=== PATIENT | male | born 1955 | race Caucasian/White ===

== ENCOUNTER → 2016-12-13 | Outpatient (CLI) | payer OTHER ==
[~2016-12-13] MED LIST: ATORVASTATIN CA80 MG PO; CARV12.5 PO; CYCL10TA2 PO; GABA-586 PO; GLIM4TAB2 PO; HYDR-2758 PO; LOSA1TAB18 PO; METF500T4 PO; NITR0.4T SL; OMEP40CA5 PO; SUCR1TAB PO; TRAM50TA PO; VENTOLIN HFA18 GM INH
--- NOTE | 2016-12-13 13:48 | KCIC ---
MRI Lumbar Spine without contrast History: Lumbar stenosis, chronic back pain, worsening pain, previous surgery Technique: Multiplanar, multi sequential noncontrast MR imaging was performed of the lumbar spine. Contrast: None Comparison: June 27, 2014 Findings: Lumbar vertebral body stature is maintained. There is again osseous interbody fusion L5-S1. There is again advanced degenerative disease at L4-5, to lesser degree L3-4. Alignment is unchanged. Conus terminates at the mid aspect L2. There is minimal inferior lumbar dextroscoliosis. There is hemangioma of T11. L1-L2: Spinal canal and neural foramina are adequate. L2-L3: Neural foramina and spinal canal are adequate. There is mild facet hypertrophic change. There is negligible disc osteophyte complex. L3-L4: There is again mild facet degenerative change and buckling of the ligamentum flavum, also mild prominence of posterior epidural fat. There is again broad posterior disc osteophyte complex and bulge. Combination of findings results in moderate to severe spinal stenosis with lateral recess stenosis bilaterally, limited preserved subarachnoid space. There is again moderate left and [id number] right neural foramina compromise. L4-L5: There again has been posterior decompression. There is bilateral facet hypertrophic change. There is again broad posterior disc osteophyte complex. There is again moderate left and mild right lateral recess stenosis. There is fairly severe neural foramina compromise bilaterally with contact exiting L4 nerve roots. L5-S1: There are posterior osteophytes. Spinal canal is overall adequate. There has been posterior decompression. There is mild left and probable moderate right neural foramina compromise also with osteophytes near the extraforaminal right L5 nerve root. Impression: 1. There is moderate to severe spinal stenosis L3-4, limited subarachnoid space and lateral recess stenosis bilaterally. 2. There is again advanced degenerative disc disease at L4-5 and to lesser degree L3-4. There is again osseous interbody fusion L5-S1. There is multilevel spondylosis. 3. There is fairly severe bilateral L4-5 neural foramina compromise with contact exiting L4 nerve roots. There is a lesser degree of narrowing on the right at L5-S1 although osteophytes near the extraforaminal right L5 nerve root at L5-S1. There is also mild/moderate neural foramina compromise bilaterally at L3-4. Electronically signed by: Matheus Murphy MD (12/13/2016 1:45 PM) [facility]
== END | disposition home or self-care (01) ==
LOC: KCIC MRI 12:56
PROVIDERS: ATTEND Family Medicine
DX: M48.06 Spinal stenosis, lumbar region (principal); M51.36 Other intervertebral disc degeneration, lumbar region; M25.78 Osteophyte, vertebrae; G89.29 Other chronic pain
CPT/HCPCS: 72148

== ENCOUNTER → 2016-12-27 | Outpatient (CLI) | payer OTHER ==
--- NOTE | 2016-12-27 16:00 | KCIC ---
Examination: MRI of the left shoulder without contrast HISTORY: History of left shoulder pain, decreased range of motion COMPARISON: None available TECHNIQUE: Multiplanar, multisequence MR imaging of the left shoulder performed without contrast. FINDINGS: The long head of the biceps tendon is within the bicipital groove. There is increased signal identified in the intra-articular portion of the long head of the biceps tendon likely moderate tendinosis. There is increased signal identified at the junction of the anterior fibers of the supraspinatus tendon and subscapularis tendon, best visualized on series 3 image #10, likely partial tear. There is moderate increased signal identified in the subscapularis tendon likely tendinosis. Small amount of fluid identified in the subacromial bursa posteriorly. There is moderate increased signal identified in the supraspinatus, infraspinatus tendons likely tendinosis There is diffuse increased signal identified throughout the labrum likely secondary to degeneration Small shoulder joint effusion identified. There is mild obscuration of fat in the rotator interval. The muscle bulk grossly appears unremarkable Moderate degenerative changes identified in the common clavicular joint. Acromion is type II Moderate degenerative changes identified in the glenohumeral joint. There are multiple cystic changes identified in the posterolateral humerus head likely secondary degeneration Moderate chondromalacia glenohumeral joint. IMPRESSION: 1. Increased signal identified in the undersurface fibers of the supraspinatus tendon in the anterior fibers at the junction with the superior fibers of subscapularis tendon best visualized on series 3 image 10 likely partial tear, measuring 1.8 cm in transverse dimension. 2. Moderate tendinosis of the intra-articular long head of the biceps tendon, supraspinatus, infraspinatus, subscapularis tendons. 3. Moderate degenerative changes acromioclavicular joint, glenohumeral joint. 4. Mild obscuration of fat in the rotator interval. Correlate for adhesive capsulitis. Electronically signed by: Dennis Villavicencio MD (12/27/2016 3:57 PM) [facility]-KCIC2
--- NOTE | 2016-12-28 12:10 | RAD ---
MRI of the cervical spine without contrast 12/27/2016 Clinical history: Neck pain with cervical spinal canal stenosis. Technique: Unenhanced T1-weighted, T2-weighted and inversion recovery sagittal and gradient echo T2-weighted axial images of the cervical spine were obtained. Findings: Comparison study is dated 06/27/2014. Minimal lateral curvature of the cervical spine is seen convex to the right. There is slight reversal of normal cervical lordosis. Degenerative signal changes and loss of height are seen involving all of the disc of the cervical spine. Degenerative signal changes are seen within the marrow surrounding these discs. At the C2-3 disc space there is a mild generalized disc bulge. Degenerative changes are seen involving the uncovertebral and facet joints bilaterally. These findings efface the anterior CSF without resulting in significant central spinal canal stenosis. Moderate bilateral neural foraminal stenosis is seen. At the C3-4 disc space there is a mild to moderate generalized disc bulge. Superimposed on this disc bulges is a focal central disc osteophyte complex. This measures 2 mm in AP diameter. Degenerative changes are seen involving the uncovertebral and facet joints bilaterally. These findings efface the anterior and posterior CSF resulting in mild central spinal canal stenosis without evidence of cord impingement. Mild to moderate bilateral neural foraminal stenosis is seen. At the C4-5 disc space there is a mild to moderate generalized disc bulge. This is eccentric to the left. Degenerative changes are seen involving the uncovertebral and facet joints bilaterally. These findings do not result in significant central spinal canal stenosis. Mild left neural foraminal stenosis is seen. The right neural foramen is patent. At the C5-6 disc space there is a mild to moderate generalized disc bulge. Degenerative changes are seen involving the uncovertebral and facet joints bilaterally. These findings efface the anterior and posterior CSF resulting in mild central spinal canal stenosis without evidence of cord impingement. Mild to moderate bilateral neural foraminal stenosis is seen. At the C6-7 disc space there is a mild to moderate generalized disc bulge. Degenerative changes are seen involving the uncovertebral and facet joints bilaterally. These findings efface the anterior and posterior CSF resulting in mild central spinal canal stenosis without evidence of cord impingement. Moderate bilateral neural foraminal stenosis is seen. At the C7-T1 disc space there is a minimal generalized disc bulge. Degenerative changes are seen involving the facet joints bilaterally. These findings do not result in significant central spinal canal or neural foraminal stenosis. The degenerative changes have progressed slightly since the previous study. Impression: Degenerative changes are seen throughout the cervical spine. These findings result in mild central spinal canal stenosis at C3-4, C5-6 and C6-7 without evidence of cord impingement. Multilevel neural foraminal stenosis of varying severity is seen as outlined above.
== END | disposition home or self-care (01) ==
LOC: KCIC MRI 14:35
PROVIDERS: ATTEND Family Medicine
DX: M94.212 Chondromalacia, left shoulder (principal); M48.02 Spinal stenosis, cervical region; G89.29 Other chronic pain
CPT/HCPCS: 72141; 73221

== ENCOUNTER → 2017-02-10 | Outpatient (CLI) | payer OTHER ==
[~2017-02-10] MED LIST changes: +ALBI50PE SQ; +AMLO5TAB2 PO; +ASPI-630 PO; +DOCU-109 PO; +DULO60CA6 PO; +EZET10TA18 PO; +HYDR-2762 PO; +HYDR12.53 PO; -LOSA1TAB18 PO; +LOSA1TAB25 PO; +MULT-460 PO; +SITA1TAB7 PO
[2017-02-10 15:36] LABS: BASO # 0.1 x10^3/uL (0.0-0.2); BASO % 1 % (0-3); EOS % 4 % (0-3); HEMATOCRIT 49.2 % (39.0-53.0); HEMOGLOBIN 16.8 g/dL (13.0-17.5); LYMPH # 3.9 x10^3/uL (1.0-4.8); LYMPH % 33 % (24-48); MEAN CORPUSCULAR HEMOGLOBIN 32 pg (25-35); MEAN CORPUSCULAR HGB CONC 34 g/dL (31-37); MEAN CORPUSCULAR VOLUME 95 fL (79-100); MONO % 7 % (0-9); NEUT % 56 % (31-73); PLATELET COUNT 203 x10^3/uL (140-400); RED BLOOD COUNT 5.21 x10^6/uL (4.30-5.70); RED CELL DISTRIBUTION WIDTH 13.7 % (11.5-14.5); WHITE BLOOD COUNT 11.8 x10^3/uL (4.0-11.0)
[2017-02-10 16:15] LABS: ALBUMIN 4.1 g/dL (3.4-5.0); ALBUMIN/GLOBULIN RATIO 1.2 (1.0-1.7); CALCIUM 9.3 mg/dL (8.5-10.1); CREATININE 0.8 mg/dL (0.7-1.3); GFR 97.6; POTASSIUM 3.7 mmol/L (3.5-5.1); TOTAL BILIRUBIN 0.7 mg/dL (0.2-1.0); TOTAL PROTEIN 7.5 g/dL (6.4-8.2)
== END | disposition home or self-care (01) ==
LOC: SURGPAT 13:24
PROVIDERS: ATTEND Neurological Surgery
DX: Z01.818 Encounter for other preprocedural examination (principal); M48.061 Spinal stenosis, lumbar region without neurogenic claudication; M54.16 Radiculopathy, lumbar region
CPT/HCPCS: 36415; 80053; 85025; 87641

== ENCOUNTER 2017-02-17 05:51 | Observation (INO) | payer OTHER ==
--- NOTE | 2017-02-14 15:20 | PREOP HP ---
DATE OF SERVICE: 02/17/2017 HISTORY OF PRESENT ILLNESS: The patient is a pleasant 61-year-old who is having difficulty with low back pain and pain which radiates into both of his legs along with feelings of numbness in his legs. He notes the pins and needle sensation in both of his feet. The problem started in . He did undergo lumbar laminectomy in 1993, which did help him for about 10 years. Now, the problem has returned and is slowly progressing. He rates his pain as a 3/10 at this time. Walking increases his pain. Sitting seems to help him. He takes Flexeril, tramadol as well as Phoenix for this. He has had lumbar epidural steroid injections as well as lumbar physical therapy. He also notices problems with left-sided neck pain and pain which radiates into his left shoulder. PAST MEDICAL HISTORY: Diabetes, peripheral neuropathy, gastric reflux, asthma, osteoarthritis, arthritis, angina, cold sores and fever blisters, heart attack/failure, hypertension, ____. PAST SURGICAL HISTORY: CABG x 4 in 2005, lumbar laminectomy with BD in 1993 and microscopic knee surgery in 1989. SOCIAL HISTORY: Retired. . Quit smoking greater than 10 years ago. Drinks alcohol one time daily. ALLERGIES: PENICILLIN AND CEPHALOSPORIN. CURRENT MEDICATIONS: Nitroglycerin, cyclobenzaprine, omeprazole, carvedilol, losartan, tramadol, Lipitor, atorvastatin, Phoenix, Janumet, Tanzeum, amlodipine, ____, duloxetine, Xanax, Voltaren. REVIEW OF SYSTEMS: A 12-point review of systems was obtained and is noncontributory except for that mentioned above. PHYSICAL EXAMINATION: NEUROSURGERY EXAMINATION: GENERAL APPEARANCE: Alert, pleasant, in no acute distress. HEAD: Normocephalic and atraumatic. NECK AND THYROID: Pexe-hz-yvpxmbav tenderness with palpation of posterior cervical region on the left side. SKIN: Warm and dry. MUSCULOSKELETAL: Cervical paraspinal muscle bulk is normal, cervical range of motion is restricted, normal range of motion of the upper extremities bilaterally, lumbar paraspinal muscle bulk is normal and strength is normal. There is a well-healed lumbar incision, there are moderate tenderness with palpation in the lower lumbar midline and over the paraspinal muscle regions bilaterally. There was a full range of motion of the lower extremities bilaterally. EXTREMITIES: No clubbing, cyanosis, or edema. NEUROLOGIC: Alert and oriented x 3, normal recent and remote memory, strength 5/5 in bilateral upper and lower extremities, sensory was intact to light touch in the upper and lower extremities except for a subjective decrease in both of his feet. Reflexes were trace and symmetric in the upper and lower extremities bilaterally, there are no pathologic reflexes, forward stooped gait. IMAGING: Reviewed. I reviewed a lumbar MRI scan. On that study, there are postoperative changes present at L5-S1 and L4-L5. There is significant lateral recess stenosis at L4-L5 primarily due to hypertrophic facets and thickened ligamentum flavum. At L3-L4, there is moderately severe lumbar spinal stenosis and severe lateral recess narrowing bilaterally. ASSESSMENT: 1. Spinal stenosis, lumbar region without neurogenic claudication. 2. Radiculopathy, lumbar region. PLAN: I believe that much of the pain he seems to be experiencing is related to the stenosis and lateral recess stenosis at L3-L4 and L4-L5 respectively. I recommended lumbar surgery, including bilateral microdecompressive surgery and that he has failed to improve with lumbar epidural steroid injections and physical therapy. I did discuss this with him in detail including the technique, risks, and expected postoperative course. He would like to go ahead. We will make the arrangements. JAZZ AYALA MD DR: AYO/dolores JOB#: [id number] / [id number]
[2017-02-17] VITALS (7 sets, daily range): BP systolic 121–143; BP diastolic 59–82
[~2017-02-17] VITALS: Ht 182.9 cm; Wt 106.6 kg
[~2017-02-17 05:51] MED LIST changes: -DOCU-109 PO; -HYDR-2762 PO
[2017-02-17] MEDS ORDERED: VANCOMYCIN 1GM IVPB FOR OMNI 250 ML IV PRN (06:00)
[2017-02-17] MEDS ORDERED: BACITRACIN 50,000 UNIT in IV NORMAL SALINE 1000ML BAG 1,000 ML IRR ONE (06:00)
[2017-02-17] MEDS ORDERED: HYDROmorphone 2 MG/ML VIAL IV PRN (07:00)
[2017-02-17] MEDS ORDERED: MORPHINE SULFATE 2 MG/ML DISP.SYRIN. IV PRN (07:00)
[2017-02-17] MEDS ORDERED: fentaNYL PF VIAL 100 MCG/2 ML VIAL IV PRN ×3 (07:00→14:45)
[2017-02-17] MEDS ORDERED: LIDOCAINE 1% PF 2 ML VIAL. ID PRN (07:00)
[2017-02-17] MEDS ORDERED: IV RINGERS,LACTATED 1000ML 1,000 ML IV SCH (07:00)
[2017-02-17] MEDS ORDERED: ONDANSETRON PF 4 MG/2 ML VIAL. IV PRN ×2 (07:00→14:45)
[2017-02-17] MEDS ORDERED: PROCHLORPERAZINE 10 MG/2 ML VIAL. IV PRN (07:00)
[2017-02-17] MEDS ORDERED: THROMBIN TOPICAL 20,000 UNIT SPRAY.SYRN KIT TP ONE (07:03)
[2017-02-17] MEDS ORDERED: KETOROLAC 60 MG/2 ML INJ FOR OR. ONE (07:03)
[2017-02-17] MEDS ORDERED: BUPIVAC MPF-EPI 0.5%-1:200000 30 ML VIAL. ONE (07:03)
[2017-02-17] MEDS ORDERED: GELATIN SPONGE SIZE 100. ONE (07:03)
[2017-02-17] MEDS ORDERED: DESFLURANE > 120 MINUTES IH ONE (08:04)
[2017-02-17] MEDS ORDERED: REMIFENTANIL 2 MG VIAL. IV ONE (08:05)
[2017-02-17] MEDS ORDERED: NEOSTIGMINE METHYLSULFATE 5 MG/5 ML SYRINGE. ONE (08:05)
[2017-02-17] MEDS ORDERED: GLYCOPYRROLATE 1 MG/5 ML VIAL. ONE (08:05)
[2017-02-17] MEDS ORDERED: ROCURONIUM 50 MG/5 ML VIAL. ONE (08:05)
[2017-02-17] MEDS ORDERED: fentaNYL PF VIAL 100 MCG/2 ML VIAL ONE (08:05)
[2017-02-17] MEDS ORDERED: MIDAZOLAM HCL/PF 2 MG/2 ML VIAL. ONE (08:05)
[2017-02-17] MEDS ORDERED: PROPOFOL 20 ML IV ONE (08:06)
[2017-02-17] MEDS ORDERED: PHENYLEPHRINE 10 MG/ML VIAL. ONE (08:06)
[2017-02-17] MEDS ORDERED: LIDOCAINE 2% PF Vial for OR 5 ML VIAL. ONE (08:06)
[2017-02-17] MEDS ORDERED: ONDANSETRON PF 4 MG/2 ML VIAL. ONE (08:06)
[2017-02-17] MEDS ORDERED: 0.9 % SODIUM CHLORIDE 50 ML VIAL. IJ ONE (08:06)
[2017-02-17] MEDS ORDERED: DEXAMETHASONE SOD PHOS 20 MG/5 ML VIAL. ONE (08:06)
[2017-02-17] MEDS ORDERED: PROPOFOL 100 ML IV ONE (08:07)
--- NOTE | 2017-02-17 09:13 | RAD ---
Indication: Lumbar stenosis, radiculopathy. Technique: Axial images and coronal and sagittal reformatted images are provided. Oblique axial images through selected interspaces were performed. Comparison MRI is from December 13, 2016. One or more of the following individualized dose reduction techniques were utilized for this examination: 1. Automated exposure control 2. Adjustment of the mA and/or kV according to patient size 3. Use of iterative reconstruction technique Findings: There is no change in alignment. There is a vacuum disc at L3-L4 and L4-L5. There is fragmentation of the anterior superior corner of L4, similar to prior, may be sequela of remote trauma. L5 and S1 are fused. Partial decompression has been performed at L4-L5. There also may have been a partial laminectomy on the left at L5-S1. Endplate degenerative changes, facet hypertrophy, and ligamentum flavum hypertrophy are greatest at L3-L4 and L4-L5. Findings appear similar to the December MRI. Findings were better evaluated by MRI. There is atheromatous disease in the abdominal aorta without aneurysm. Impression: Degenerative changes in the lumbar spine are greatest at L3-L4 and L4-L5. Postsurgical changes at L4-L5 and L5-S1.
[2017-02-17] MEDS ORDERED: PROPOFOL 50 ML IV ONE ×2 (11:22→12:37)
[2017-02-17] MEDS ORDERED: REMIFENTANIL 1 MG VIAL. IV ONE (12:05)
[2017-02-17] MEDS ORDERED: ALBUTEROL SULFATE 2.5 MG/3 ML NEBU. NEB ONE ×2 (14:30)
[2017-02-17] MEDS ORDERED: diphenhydrAMINE 50 MG/ML VIAL IV PRN (14:45)
[2017-02-17] MEDS ORDERED: NON FORMULARY ITEM (Albuterol Sulfate (Ventolin Hfa Inhaler) 2 PUFF) INH PRN (14:45)
[2017-02-17] MEDS ORDERED: ACETAMINOPHEN 325 MG TABLET. PO PRN (14:45)
[2017-02-17] MEDS ORDERED: HYDROcodone/APAP 7.5/325MG 1 TAB TABLET PO PRN (14:45)
[2017-02-17] MEDS ORDERED: traMADol 50 MG TABLET PO PRN (14:45)
[2017-02-17] MEDS ORDERED: INSULIN ASPART 100 UNIT/ML 10ML VIAL. SQ ONE ×2 (14:45→16:15)
[2017-02-17] MEDS ORDERED: 0.9 % SODIUM CHLORIDE 10 ML DISP.SYRIN. IV PRN (14:45)
[2017-02-17] MEDS ORDERED: MAGNESIUM HYDROXIDE 2,400 MG/30 ML ORAL.SUSP. PO PRN (14:45)
[2017-02-17] MEDS ORDERED: MAG HYDROX/ALUMINUM HYD/SIMETH 30 ML ORAL.SUSP PO PRN (14:45)
[2017-02-17] MEDS ORDERED: CALCIUM CARBONATE 500 MG TAB.CHEW PO PRN (14:45)
[2017-02-17] MEDS ORDERED: diphenhydrAMINE HCL 25 MG CAPSULE PO PRN (14:45)
[2017-02-17] MEDS ORDERED: NITROGLYCERIN SUBLINGUAL 0.4 MG BOTTLE OF 25. SL PRN (14:45)
[2017-02-17] MEDS ORDERED: NEOMY/BACITR/POLYMYXIN OINT PACKET. TP PRN (15:00)
[2017-02-17] MEDS: fentaNYL PF VIAL 100 MCG/2 ML VIAL IV PRN ×3 (15:12→21:01)
[2017-02-17] MEDS: MORPHINE SULFATE 4 MG/ML DISP.SYRIN. IV PRN ×2 (15:18→15:40)
[2017-02-17] MEDS ORDERED: RACEPINEPHRINE 2.25% 0.5 ML NEBU. ONE (15:21)
[2017-02-17] MEDS ORDERED: RACEPINEPHRINE 2.25% 0.5 ML NEBU. NEB PRN (15:30)
[2017-02-17] MEDS ORDERED: INSULIN ASPART 300 UNITS/3 ML INSULN.PEN SQ PRN (16:15)
[2017-02-17] MEDS ORDERED: ALBUTEROL SULFATE 2.5 MG/3 ML NEBU. NEB PRN (17:00)
[2017-02-17] MEDS ORDERED: POTASSIUM CL 20MEQ-0.45% NACL 1,000 ML IV SCH (17:00)
--- NOTE | 2017-02-17 18:12 | OP ---
DATE OF SURGERY: 02/17/2017 PREOPERATIVE DIAGNOSES: 1. Lumbar spinal stenosis L3-L4, L4-L5. 2. Previous lumbar laminectomy, L4-L5. POSTOPERATIVE DIAGNOSES: 1. Lumbar spinal stenosis L3-L4, L4-L5. 2. Previous lumbar laminectomy, L4-L5. OPERATION PERFORMED: Bilateral hemilaminotomies L3-L4, L4-L5 with decompression of dura and nerve root. SURGEON: Cody Ayala M.D. LIABILITY ANALYST: JW Wang and ESPINOZA Clarke. Leda Ryan assisted with the opening and the microdecompression. Amanda Brizuela assisted with the microdecompression as well as the closure. The operation was done with [employer] guidance, fluoroscopy and microscopic dissection. OPERATIVE INDICATIONS: The patient is a very pleasant 61-year-old man who developed intractable back and bilateral leg pain. He had undergone a previous operation a number of years ago and had done well from that. On imaging studies, there are postoperative changes at L4-L5 with significant lateral stenosis and calcified disc bulging and at L3-L4, there was more generalized stenosis with thickened ligamentum flavum and disc bulging as well as hypertrophic facets. I recommended bilateral microdecompressive surgery at L3-L4 and L4-L5. I discussed this with him and he wished to go ahead. DESCRIPTION OF PROCEDURE: Following general endotracheal anesthesia, the patient was positioned prone on the Mark table. His lumbar region was prepped and draped in standard fashion. HOPE hose and AV impulse boots were applied for DVT prophylaxis. The microscope was draped. Fluoroscopy was draped and brought into field. Monitoring was established. Iliac pins were placed in the right iliac crest and BrainLAB system was initialized. I then using Brain[employer] guidance made an incision extending from the upper aspect of L3 to the inferior aspect of L4 incorporating a portion of the previously made well-healed incision from his previous surgery, dissected down through the skin and subcutaneous tissue and reflected the paraspinal muscles laterally assuring myself to avoid the areas of his previous laminectomy at L4-L5. I brought in the microscope after placing a self-retaining retractor and then beginning on the left side, I burred down a generous hemilaminotomy at L3-L4 on the left, trimmed away thickened ligamentum flavum and fully decompressed the entire region performing a generous partial foraminotomy. The disc was bulging very minimally and very firm and I did not feel a discectomy was warranted. I then moved down to L4-L5 and went through scar. I then drilled into the residual facet and exposed the dura and working down very gently through considerable scar using the [employer] system to guide my dissection plane. I exposed the level of the disc and the takeoff of the L5 root. I did perform a partial foraminotomy and I fully decompressed this side. I then went to the right side in a similar fashion at L3-L4. I burred down a generous hemilaminotomy, trimmed away thickened ligamentum flavum exposing the dura and the exiting root. At L4-L5 on the right; however, there was considerable scarring and hypertrophic bone and ligament, which was intermittently scarred to the dura and this caused very tedious dissection. I was able to decompress the superior portion of the dura and worked inferiorly; however, there were areas because of considerable scarring that it was impossible to fully decompress the exiting roots without significant likelihood of injury. I did largely decompress the entire region and clearly had relieved the majority of the stenosis. I irrigated copiously with antibiotic solution. I did use small amounts of bone wax where necessary. I felt that I had an excellent decompression. There were no significant difficulties at this point. The hemostasis was excellent. After removal of the retractor, I irrigated copiously. I closed the wound in layers with absorbable suture, skin was closed with a 4-0 subcuticular stitch. The operation went very well and the patient was awakened uneventfully and taken to recovery room. I was quite pleased with the surgery. CODY AYALA MD DR: AYO/dolores JOB#: [id number] / [id number] ROSIO
[2017-02-17] MEDS ORDERED: EZETIMIBE 10 MG TABLET. PO SCH (21:00)
[2017-02-17] MEDS ORDERED: amLODIPine BESYLATE 5 MG TABLET PO SCH (21:00)
[2017-02-17] MEDS ORDERED: ATORVASTATIN CALCIUM 40 MG TABLET. PO SCH (21:00)
[2017-02-17] MEDS: DOCUSATE SODIUM 100 MG CAPSULE. PO SCH (21:34)
[2017-02-17] MEDS: CYCLOBENZAPRINE 10 MG TABLET. PO SCH (21:34)
[2017-02-17] MEDS: HYDROcodone/APAP 7.5/325MG 1 TAB TABLET PO PRN (21:38)
[2017-02-18] MEDS: HYDROcodone/APAP 7.5/325MG 1 TAB TABLET PO PRN ×3 (02:50→12:35)
[2017-02-18 03:00] VITALS: BP 117/67
[2017-02-18 06:30] VITALS: BP 106/54
[2017-02-18] MEDS ORDERED: PANTOPRAZOLE 40 MG TABLET.DR. PO SCH (07:30)
[2017-02-18] MEDS: CYCLOBENZAPRINE 10 MG TABLET. PO SCH ×2 (07:50→14:35)
[2017-02-18] MEDS: DOCUSATE SODIUM 100 MG CAPSULE. PO SCH (07:51)
[2017-02-18] MEDS: metFORMIN 500 MG TABLET PO SCH ×3 (07:51→17:24)
[2017-02-18] MEDS: CARVEDILOL 12.5 MG TABLET. PO SCH ×2 (07:53→18:22)
[2017-02-18] MEDS ORDERED: GLIMEPIRIDE 2 MG TABLET. PO SCH (08:00)
[2017-02-18] MEDS ORDERED: hydroCHLOROthiazide 12.5 MG CAPSULE PO SCH (09:00)
[2017-02-18] MEDS ORDERED: LOSARTAN POTASSIUM 50 MG TABLET. PO SCH (09:00)
[2017-02-18] MEDS ORDERED: DULoxetine HCL 30 MG CAPSULE.DR PO SCH (09:00)
[2017-02-18] MEDS ORDERED: LINAGLIPTIN 5 MG TABLET PO SCH (09:00)
[2017-02-18] MEDS ORDERED: MULTIVITAMIN with MINERAL TABLET. PO SCH (09:00)
[2017-02-18] MEDS ORDERED: ASPIRIN CHEWABLE 81 MG TABLET. PO SCH (09:00)
[2017-02-18 11:03] VITALS: BP 103/61
--- NOTE | 2017-02-18 11:10 | DISCH ---
DISCHARGE INSTRUCTIONS Condition on Discharge Condition on Discharge: Stable Activity After Discharge Activity Instructions for Disc: Activity as tolerated, Avoid exertion Other activity instructions: no driving for a week Bathing Instructions: Shower-keep dressing dry Lifting Instructions after Dis: No heavy lifting, No pulling or pushing, Do not lift >10 pounds Diet after Discharge Additional Diet Restrictions: resume home diet Wound Incision Care Wound/Incision Care: Ice to area for comfort Other wound/incision instructi: may remove dressing in 48 hrs if dry then may shower- no soaking Contacting the after DC Call your doctor for: Concerns you may have Follow-Up Follow up with: Dr. Ayala's nurse in 2 weeks [phone] JAZZ AYALA MD Feb 18, 2017 11:10
[2017-02-18] MEDS ORDERED: DOCU-109 PO (11:12)
[2017-02-18] MEDS ORDERED: HYDR-2762 PO (11:12)
--- NOTE | 2017-02-18 12:04 | CONS ---
DATE OF CONSULTATION: ATTENDING PHYSICIAN: Dr. Chandler. REASON FOR CONSULTATION: Hemoptysis and possible tracheal stenosis. HISTORY OF PRESENT ILLNESS: The patient is a 61-year-old pleasant male who has smoked for 30 years before quitting more than 6-7 years ago. He was hospitalized for elective laminectomies, performed by Dr. Chandler. Anesthesiologist reported difficulty in intubation. He had also had a mild hemoptysis post-procedure. The patient states that he has hoarseness for the last 3 years. He denies any shortness of breath. No weight loss. He does have severe acid reflux, for which he is on omeprazole. He denies any postnasal drainage. Consultation requested for further evaluation and management. At this point, no imaging studies are available. PAST MEDICAL HISTORY: Possible COPD, history of diabetes, history of peripheral neuropathy, severe GERD. History of asthma, which is under control. Arthritis, angina, cold sores and fever blisters. Hypertension. PAST SURGICAL HISTORY: CABG in 2005. He had tracheostomy after prolonged intubation with ARDS in 2005. Had knee surgery as well. SOCIAL HISTORY: Retired, . He quit tobacco 10 years ago, but smoked for 30 years. He drinks alcohol. ALLERGIES: PENICILLIN AND CEPHALOSPORINS. MEDICATIONS: Reviewed as listed in the MRAD. REVIEW OF SYSTEMS: Twelve-point systems obtained. Pertinent positive discussed in my history of present illness, otherwise noncontributory. All systems that were negative were reviewed as well. PHYSICAL EXAMINATION: VITAL SIGNS: Stable, afebrile, pulse ox 91% on room air. NECK: Supple. He has a tracheostomy scar. LUNGS: Clear. CARDIOVASCULAR: Regular rate and rhythm. ABDOMEN: Soft. EXTREMITIES: No pitting edema. IMPRESSION: 1. Chronic hoarseness for the last 3 years in a patient who had history of acute respiratory distress syndrome and had 12 days of intubation, followed by tracheostomy and subsequent decannulation. He had mild hemoptysis post-intubation during this hospitalization. He also has severe acid reflux. Following are the possibilities: A. Consider ruling out tracheal stenosis or vocal cord paralysis which may have resulted from prior intubation/prolonged intubation/tracheostomy. B. Severe acid reflux may be contributing to hoarseness as well. 2. History of tobacco use for 30 years. Need to rule out any malignancy. RECOMMENDATIONS: 1. Obtain CT neck and chest. 2. If CT neck and chest is unremarkable, then he would benefit from direct visualization of vocal cords via laryngoscopy. This can be done as an outpatient. 3. Monitor for any further hemoptysis. This may be traumatic. 4. PFTs as an outpatient and will follow along with you. BK CENTENO MD DR: TAMRA/dolores JOB#: [id number] / [id number] ROSIO
--- NOTE | 2017-02-18 14:03 | DS ---
DATE OF DISCHARGE: 02/17/2017 DATE OF DISCHARGE: 02/18/2017. DISCHARGE DIAGNOSES: Lumbar spinal stenosis, L3-L4 and L4-L5. OPERATION PERFORMED: Bilateral hemilaminotomies, L3-L4 and L4-L5 with decompression of dura and nerve root. HISTORY OF PRESENT ILLNESS: The patient is a pleasant 61-year-old man who developed intractable back and bilateral leg pain. He had undergone a previous operation number of years ago and did well from that. On imaging studies, there were postoperative changes at L4-L5 with significant lateral stenosis and calcified disk bulging at L3-L4. There was more generalized stenosis with thickened ligamentum flavum and disk bulging as well as hypertrophic facet. I recommended bilateral micro-decompressive surgery at L3-L4 and L4-L5. He understood the surgery and the risk and wished to proceed. HOSPITAL COURSE: He was admitted to the floor postoperatively. He is doing very well. He is up ambulating in the room and in the halls. He reports significant improvement in his lower extremity symptoms. Physical therapy was initiated and instruction was given to him regarding his activities. His pain is well controlled and he is in good condition at discharge to home. DISCHARGE MEDICATIONS: He will resume his medications per the MRAD. DISCHARGE INSTRUCTIONS: He was instructed regarding incision care, activity restrictions and expectations for the next several weeks. He will follow up in our office in 2 weeks. He understands to call with any questions or concerns. JAZZ AYALA MD DR: TESSIE/dolores JOB#: [id number] / [id number]
--- NOTE | 2017-02-18 15:28 | PATHOLOGY ---
PATHOLOGY REPORT * * * * * * * * FINAL DIAGNOSIS: Segments of fibrocartilaginous, adipose, and skeletal muscle tissue and bone, lumbar decompression: - Degenerative changes of fibrocartilaginous tissue. COMMENT: There is no evidence of an acute inflammatory process or malignancy. (JPM:; 02/18/2017) REPORT ELECTRONICALLY SIGNED BY: Cosme Linda M.D. DATE/TIME: 02/18/2017 15:27 * * * * * * * * GROSS PATHOLOGY: Received in formalin labeled "Jozef Smith, lumbar decompression L3-4, L4-5," are multiple segments of yellow, butts and white rubbery and gritty tissue measuring 5.8 x 4.4 x 0.9 cm in aggregate dimensions with admixed calcified tissue. The tissue is submitted representatively in cassette A1 following decalcification. (SDY; 02/17/2017) INITIAL CPT CODE(S): A; 28537, 58131 Professional services performed [place] [facility] [address] Technical services performed by [facility] at [address] [place] [address]. SPECIMEN(S) RECEIVED: A.Lumbar decompression CLINICAL HISTORY: Lumbar stenosis, radiculopathy PATIENT: JOZEF SMITH /AGE: 711/03/1955 (Age: 61) PATIENT #: [id number] ALT CASE #: SPECIMEN COLLECTION DATE: 02/17/2017 SPECIMEN RECEIVED DATE: 02/17/2017 [facility] - [address] [place] [address] - PHONE: [phone] * * * END OF REPORT * * *
--- NOTE | 2017-02-18 17:40 | RAD ---
CT neck and chest without contrast 02/18/2017 Clinical indication: Hoarseness, evaluate tracheal stenosis. Comparison: CT cervical spine 12/27/2016 Technique: Multiple CT images of the neck and chest were obtained without contrast according to standard protocol. PQRS Compliance Statement: One or more of the following individualized dose reduction techniques were utilized for this examination: 1. Automated exposure control 2. Adjustment of the mA and/or kV according to patient size 3. Use of iterative reconstruction technique Findings: Neck: Examination is somewhat limited due to lack of intravenous contrast. Within these limitations, nasal cavity, nasopharynx, oral cavity, oropharynx, hypopharynx and larynx are unremarkable. Unenhanced contours of the submandibular, parotid and thyroid glands are normal appearance. No cervical lymphadenopathy. No contrast evidence of discrete soft tissue cervical mass. There is multilevel cervical spondylosis with no destructive osseous lesions. The cervical portion of the upper mid trachea is patent. Chest: Heart size is upper limits of normal without significant pericardial effusion. Prior median sternotomy and CABG. There are three-vessel chilkoot coronary artery calcifications. The thoracic aorta is normal in caliber with mild scattered calcified atheromatous disease. No axillary, mediastinal or obvious hilar lymphadenopathy, though evaluation is limited in the absence of intravenous contrast. The lower trachea and central airways are patent without focal narrowing or occlusion. There is mild linear atelectasis or scarring in the left lower lobe and lingula. No pleural effusion, pneumothorax or focal consolidation. There are no destructive osseous lesions. Limited images of the upper abdomen: Mild diffuse hepatic steatosis. Calcified atheromatous disease of the abdominal aorta. There is subcentimeter low-attenuation nodularity of the left adrenal gland, likely benign adenoma or adrenal hyperplasia. Impression: Neck: 1. No noncontrast evidence of discrete soft tissue cervical mass or cervical lymphadenopathy. 2. Cervical portions of the trachea are patent without high-grade narrowing to suggest tracheal stenosis. Chest: 1. Trachea is patent without high-grade narrowing to suggest stenosis. 2. Hepatic steatosis.
[2017-02-18 18:02] VITALS: BP 116/51
[2017-02-18 18:22] VITALS: BP 116/51
[2017-02-24] MEDS ORDERED: ALBIGLUTIDE 50 MG SQ SCH (09:00)
== END 2017-02-18 19:37 | disposition home or self-care (01) ==
LOC: SURG 05:51 → 4 SOUTHEST 14:43
PROVIDERS: ADMIT Neurological Surgery; ATTEND Neurological Surgery
DX: M48.061 Spinal stenosis, lumbar region without neurogenic claudication (principal); M54.16 Radiculopathy, lumbar region; E11.42 Type 2 diabetes mellitus with diabetic polyneuropathy; I10 Essential (primary) hypertension; K21.9 Gastro-esophageal reflux disease without esophagitis; J45.909 Unspecified asthma, uncomplicated; M19.90 Unspecified osteoarthritis, unspecified site; I25.2 Old myocardial infarction; Z87.891 Personal history of nicotine dependence; Z95.1 Presence of aortocoronary bypass graft
CPT/HCPCS: 63030; 63035; 70490; 71250; 72131; 76000; 82962; 88304; 88311; 94640; 96374; 96375; 97116; 97162; 97165; 97530; G0378; G0379; G8978; G8979; G8980; J1100; J1885; J2250; J2270; J2405; J2704; J2710; J3010; J3370; J3490; J7030; J7120; J7613; J1815; J2001

== ENCOUNTER → 2019-10-13 | Outpatient (CLI) | payer MEDICARE ==
[~2019-10-13] MED LIST changes: -ALBI50PE SQ; +ALBI50PE3 SQ; +AMLO5TAB10 PO; -AMLO5TAB2 PO; +DOCU-109 PO; -EZET10TA18 PO; +EZET10TA20 PO; -GABA-586 PO; +GABA300C18 PO; -GLIM4TAB2 PO; +GLIM4TAB8 PO; -HYDR-2758 PO; +HYDR-2761 PO; +HYDR-2765 PO; -HYDR12.53 PO; +HYDR12.575 PO; +METF500T16 PO; -METF500T4 PO; -NITR0.4T SL; +NITR0.4T24 SL; +OMEP40CA45 PO; -OMEP40CA5 PO
--- NOTE | 2019-10-13 16:20 | KCIC ---
AP and lateral left knee radiographs 10/13/2019 CLINICAL HISTORY: Left knee pain particularly with weightbearing. Standing AP and lateral digital radiographs left knee were obtained. Moderate degenerative changes are seen involving all 3 compartments of the left knee. These consist of varying degrees of disc space narrowing, subchondral sclerosis and associated osteophyte formation. The most significant joint compartment narrowing is seen involving the medial compartment of the left knee. No fracture or dislocation is seen. There is a small left suprapatellar joint effusion. Atherosclerotic calcification left popliteal artery and its branches is noted. IMPRESSION: Moderate degenerative changes are seen involving the left knee as discussed above. No acute osseous abnormality is seen. Electronically signed by: Gideon Julian MD (10/13/2019 4:17 PM) [id number]
== END | disposition home or self-care (01) ==
LOC: KCIC 14:14
PROVIDERS: ATTEND Family Medicine
DX: M17.12 Unilateral primary osteoarthritis, left knee (principal); M25.762 Osteophyte, left knee; M25.462 Effusion, left knee; I70.0 Atherosclerosis of aorta
CPT/HCPCS: 73560

== ENCOUNTER → 2019-11-24 | Outpatient (CLI) | payer MEDICARE ==
--- NOTE | 2019-11-24 17:35 | KCIC ---
L-spine 5 views INDICATION: Chronic low back pain. 2 previous laminectomies. COMPARISON: None currently available. FINDINGS: AP, lateral, coned-down lateral spot views of the lumbosacral junction, bilateral oblique views of the lumbar spine were obtained. They show 4 lumbar type vertebrae with interval mild anterior wedge compression deformity at L1 and some loss of height at L5 with anterior cortical buckling that is new. The lumbar spinal alignment shows persistent mild straightening of the lumbar spine with no listhesis. The bones are demineralized but show no acute fracture or aggressive appearing osseous lesions. There is suggestion of a pars defect at L3 on the left. AP views suggests previous posterior decompressive surgical changes at L3 and L4, compatible with laminotomy. There is mild narrowing of the disc spaces throughout the lumbar spine. Multilevel facet hypertrophic changes present as well. These appear to contribute to varying degrees of foraminal narrowing most conspicuous at L3 on the right. Soft tissues show arterial calcifications in abdominal aorta. IMPRESSION: Multilevel lumbar spinal degenerative spondylosis with interval mild anterior wedge compression deformity likely chronic at L1 and some loss of height at L4 with anterior cortical bowing. MRI if clinically appropriate could be helpful in more detailed evaluation of these changes. Electronically signed by: Joel Greene MD (11/24/2019 5:32 PM) [facility] [place]
== END | disposition home or self-care (01) ==
LOC: KCIC 10:11
PROVIDERS: ATTEND Family Medicine
DX: M47.816 Spondylosis without myelopathy or radiculopathy, lumbar region (principal); M43.8X6 Other specified deforming dorsopathies, lumbar region; M81.8 Other osteoporosis without current pathological fracture; M48.061 Spinal stenosis, lumbar region without neurogenic claudication; I70.0 Atherosclerosis of aorta; Z98.1 Arthrodesis status
CPT/HCPCS: 72110

== ENCOUNTER → 2019-12-01 | Outpatient (CLI) | payer MEDICARE ==
--- NOTE | 2019-12-01 15:28 | KCIC ---
EXAM: Lumbar spine MRI without contrast. HISTORY: Disc degeneration. Right lower extremity radiculopathy. TECHNIQUE: Multiplanar, multisequence magnetic resonance imaging of the lumbar spine was performed without contrast. COMPARISON: 12/13/2016 FINDINGS: There is noninstrumented fusion with bony bridging at L5-S1. There is S-shaped lumbar scoliosis. There is no significant listhesis. There is severe degenerative endplate remodeling with disc space narrowing, disc desiccation, osteophytosis and Schmorl's node formation throughout the lumbar spine, predominantly at L4-L5. There is a chronic mild superior endplate depressions superimposed on a Schmorl's node at L4. No acute or subacute fracture is seen. There is no suspicious osseous lesion. The conus terminates at L2. At T11-T12, there is a shallow right paracentral to lateral recess disc protrusion. There is mild right greater than left facet arthropathy. There is mild right foraminal stenosis. At T12-L1, there is no stenosis. At L1-L2, there is a disc bulge and endplate remodeling. There is minimal central canal stenosis. At L2-L3, there is a right lateral predominant disc bulge and endplate osteophytosis. There is mild right greater than left foraminal stenosis. There is moderate central canal stenosis. At L3-L4, there is a broad-based left paracentral to foraminal disc protrusion with 5 mm superior extrusion superimposed on a disc bulge and left lateral predominant endplate osteophytosis. There is mild left facet arthropathy. There are suspected left hemilaminectomy changes. There is severe left greater than right foraminal stenosis. There is moderate to severe central canal stenosis. At L4-L5, there is a broad-based posterior central disc protrusion and annular tear with 4 mm superior and 5 mm anterior extrusion. There is also a left foraminal to extra foraminal disc protrusion with annular tear and superior extrusion. This is superimposed on a left lateral predominant disc bulge and endplate osteophytosis. There is mild right and severe left facet arthropathy. There are partial laminectomy changes. There is moderate to severe right and severe left foraminal stenosis. There is moderate central canal stenosis. At L5-S1, there is nonenhanced minute fusion with bony bridging across the disc space. There is diffuse endplate osteophytosis. There is severe right and mild left foraminal stenosis. IMPRESSION: 1. Multilevel degenerative change involving the lumbar spine, described in detail above. This is associated with mild right foraminal stenosis at T12-L1, mild right greater than left foraminal and moderate central canal stenosis at L2-L3, severe left greater than right foraminal and moderate to severe central canal stenosis at L3-L4, moderate to severe right and severe left foraminal and moderate central canal stenosis at L4-L5, and severe right and mild left foraminal stenosis at L5-S1. The degenerative changes are increased at all levels compared to the prior exam, with exception of stable changes at L5-S1. 2. Lumbar scoliosis. 3. Partial laminectomy changes at L3-L4 and L4-L5. There is noninstrumented fusion with bony bridging across the disc space at L5-S1. Electronically signed by: Nanda Pollock MD (12/01/2019 3:25 PM) [facility]
== END | disposition home or self-care (01) ==
LOC: KCIC MRI 13:47
PROVIDERS: ATTEND Family Medicine
DX: M51.37 Other intervertebral disc degeneration, lumbosacral region (principal); M48.07 Spinal stenosis, lumbosacral region; M41.86 Other forms of scoliosis, lumbar region; M48.04 Spinal stenosis, thoracic region; M47.816 Spondylosis without myelopathy or radiculopathy, lumbar region
CPT/HCPCS: 72148

== ENCOUNTER → 2019-12-14 | Outpatient (CLI) | payer MEDICARE ==
[~2019-12-14] MED LIST changes: +AMLO10TA8 PO; +EXEN2AUT SQ; +IOHEXOL 180 MG/ML 10 ML VIAL. ONE; +LIDO700A21 TP; +methylPREDNISolone ACETATE 40 MG/ML VIAL. ONE; +methylPREDNISolone ACETATE 80 MG/ML VIAL. ONE
--- NOTE | 2019-12-14 12:34 | PDOC2 ---
INITIAL PAIN CONSULT DATE OF SERVICE: DOS: DATE: 12/14/19 TIME: 12:22 CHIEF COMPLAINT: Chief Complaint: Low back and bilateral lower extremity pain HISTORY OF PRESENT ILLNESS: 64-year-old male presents with history of pain low back bilateral lower extremities for about 2 months now status post fall at home x2 in October of this year. Patient reports prior to that he was having some back pain but is not nearly as bad with not traveling in the lower extremities as it is now. Patient reports in the low back bilateral lower extremities posterior gluteus posterior lateral thigh lateral anterior thighs and medial thighs to the knees bilaterally worse with walking standing changing positions or getting up from seated position especially painful. Patient scribes the pain is now constant sharp stabbing throbbing shooting radiating in the lower extremities as described with some tingling and numbness in the low back and a burning pain as well patient reports it wakes him from sleep at night least 2-3 times generalized not affect his bowel bladder control but does affect his ability to walk patient does have Qqkjggv-Asjmp-Kkorj disease and uses a cane in his right hand ambulate. Patient did have an MRI scan of the lumbar spine showing severe left greater than right foraminal and moderate to severe central canal stenosis at L3-4 moderate to severe right and severe left foraminal and moderate central canal stenosis at L4-5 and severe right and mild left foraminal stenosis at L5-S1. Patient ports no loss of motor function completely but with his Bybzspv-Khybf-Anqgl disease and recent pain he is having a lot of fatigue in the lower extremities with even walking more than about 5 minutes. Patient rates his disability rating 0-10 10 being the worst is a 6 with family home responsibilities social activity sexual behavior self-care 10 with recreational activities and/support activities. PAST MEDICAL HISTORY: PMH: Nulhzxs-Xckzh-Yjvqg disease, hypertension, hearing loss, diabetes, dizziness, arthritis PREVIOUS SURGERIES: Past Surgical Hx: Lumbar laminectomy 1993 and 2016, coronary artery bypass grafting 2005, left knee scope CURRENT MEDICATIONS: Current Meds: Active Scripts Medications Dose Route/Sig Max Daily Dose Days Date Category Dose Instructions Lidocaine PATCH (Lidocaine) 1 Each Adh..patch 1 Each TP DAILY 12/14/19 Reported REMOVE AFTER 12 HOURS Bydureon Bcise (Exenatide Microspheres) 2 Mg/0.85 Ml Auto.injct 2 Mg SQ WEEKLY 12/14/19 Reported Amlodipine Besylate 10 Mg Tablet 10 Mg PO DAILY 12/14/19 Reported Hydrocodone-Apap 7.5-325 (Hydrocodone Bit/Acetaminophen) 1 Each Tablet 1 Tab PO PRN Q6HRS PRN 02/18/17 Rx Colace (Docusate Sodium) 100 Mg Capsule 100 Mg PO BID 30 02/18/17 Rx Aspirin 81 Mg Tab.chew 1 Tab PO DAILY 02/04/17 Reported Multiple Vitamin (Multivitamin With Minerals) 1 Each Tablet 1 Each PO DAILY 02/04/17 Reported Cymbalta (Duloxetine Hcl) 60 Mg Capsule.dr 60 Mg PO DAILY 02/04/17 Reported Zetia (Ezetimibe) 10 Mg Tablet 10 Mg PO HS 02/04/17 Reported Ventolin Hfa Inhaler (Albuterol Sulfate) 18 Gm Hfa.aer.ad 2 Puff INH QID PRN 09/21/14 Reported Glimepiride 4 Mg Tablet 4 Mg PO DAILY 06/27/14 Reported Atorvastatin Calcium 80 Mg Tablet 80 Mg PO DAILY 06/27/14 Reported Losartan-Hctz 100-12.5 Mg Tab (Losartan/Hydrochlorothiazide) 1 Each Tablet 1 Each PO DAILY 06/27/14 Reported Coreg (Carvedilol) 12.5 Mg Tablet 12.5 Mg PO BIDWMEALS 06/27/14 Reported Tramadol Hcl 50 Mg Tablet 50 Mg PO Q6H PRN 06/27/14 Reported Omeprazole 40 Mg Capsule.dr 40 Mg PO DAILY 06/27/14 Reported Nitrostat (Nitroglycerin) 0.4 Mg Tab.subl 0.4 Mg SL PRN Q5MIN PRN 06/27/14 Reported Cyclobenzaprine Hcl 10 Mg Tablet 10 Mg PO TID 06/27/14 Reported ALLERGIES; Allergies: Coded Allergies: Cephalosporins (Unverified Allergy, Intermediate, 02/17/17) Penicillins (Verified Allergy, Intermediate, Rash, 02/17/17) FAMILY HISTORY: Family Hx: Cardiovascular disease, pancreatic cancer SOCIAL HISTORY: Social Hx: Patient does not drink alcohol quit smoking about 10 years ago patient is not reports he lives alone 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 Extraocular movements are intact and symmetrical, patient wearing eyeglasses. Oral cavity: Mucous membranes moist and pink. Dentition is intact. NECK: Shows anterior throat supple without palpable lymphadenopathy noted. Swallow reflex symmetrical. CHEST: Shows normal on inspection. Breath sounds are clear bilaterally, no ra les rhonchi or wheezes auscultated. HEART: Shows S1, S2 clear. No murmurs auscultated. ABDOMEN: Soft, nontender, nondistended, obese. No palpable organomegaly is noted. No rebound or guarding demonstrated. BACK: Shows spine grossly in the midline. Normal-appearing cervical lordotic curvature. There is slightly increased thoracic kyphosis, some minor flattening of the lumbar lordotic curvature, with well-healed midline surgical scar noted. Lumbar paraspinous muscles show symmetrical on inspection, on palpation shows some moderate tenderness diffusely throughout the middle and lower distribution of the paraspinous muscles bilaterally but without specific trigger points, without radiation of pain. The patient has good rotational motion of the lumbar spine, both laterally as well as extension and flexion without significant difficulty. No tenderness over the spinous processes, sacrum or sacroiliac regions. EXTREMITIES: Lower extremities show deep tendon reflexes 1+ in the patellar and tendo calcaneus tendons. Motor exam is 34 on a scale of 5 with right dorsiflexion, extension, quadriceps and hamstring flexion and 34/5 on the left. Patient has foot drop bilaterally secondary to CMT, peripheral pulses are 1+ posterior tibial. No peripheral edema is noted bilaterally. Lower extremities are warm and dry to touch, equal in color and appearance. Straight leg raise noted to be negative, left side is negative. Gaenslen's and Bryon's maneuvers are negative as well. The patient is able to stand but requires assistance using the arms of the chair to stand from a seated position walks with a severe antalgic gait using his quadriceps muscles to raise his lower legs and using a cane in his right hand. SKIN: Shows warm and dry, good turgor. No edema. No sores, rashes or bruising throughout. IMPRESSION: Impression: 64-year-old male with approximate 2-month history after fall at home pain low back bilateral lower extremities and radicular fashion. MRI scan lumbar spine as noted Hypertension Diabetes Arthritis Plan: Options were discussed with the patient including conservative medical management physical therapies and interventional techniques. Patient like to pursue dimensional techniques. We discussed a lumbar epidural steroid injection using description as well as anatomical models to describe the procedure. Risks were then discussed risks were discussed including but not limited to: Bleeding, infection, possibility of epidural hematoma and subsequent neurological compromise, dural puncture, headaches, spinal cord and/or nerve damage, side effects of steroid medication, and poor results regarding pain control. Patient understands wished to proceed. Patient return to clinic in approximately 2 weeks for follow-up. Procedure is lumbar epidural steroid injection under local anesthetic using sterile prep and drape at the L4-5 level using C-arm fluoroscopic guidance in both AP and lateral views medications injected is 120 mg Depo-Medrol + 10 mL preservative-free normal saline and 2 mL contrast- condition at discharge is stable patient tolerated procedure well had no complications. DINO ESCOBAR MD Dec 14, 2019 12:34
== END | disposition home or self-care (01) ==
LOC: PNCL 11:14
PROVIDERS: ATTEND Anesthesiology
DX: M54.5 Low back pain (principal); I10 Essential (primary) hypertension; E11.9 Type 2 diabetes mellitus without complications; M19.90 Unspecified osteoarthritis, unspecified site; Z87.891 Personal history of nicotine dependence; Z80.8 Family history of malignant neoplasm of other organs or systems; Z88.0 Allergy status to penicillin; Z79.899 Other long term (current) drug therapy; Z79.4 Long term (current) use of insulin
CPT/HCPCS: 62323; J1030; J1040; Q9965

== ENCOUNTER → 2020-01-28 | Outpatient (CLI) | payer MEDICARE ==
[~2020-01-28] MED LIST changes: +AMLO-186 PO; +AMLO-187 PO; -AMLO10TA8 PO; -AMLO5TAB10 PO; +MECL-75 PO
--- NOTE | 2020-01-28 10:45 | PDOC ---
Progress Note - Pain Clinic Date of Service: DOS: DATE: 01/28/20 TIME: 10:32 Diagnosis: Dx: Lumbar radiculopathy with lumbar degenerative disc disease lumbar spinal stenosis and post lumbar laminectomy syndrome History or Present Illness: HPI: 64-year-old male returns follow-up status post lumbar epidural straight injection x1. Patient reports about 80 to 90% improvement for several weeks following the injection but the pain returned now over the past week and a half or so patient reports is across the low back and the bilateral lower extremities right essentially equal to left posterior gluteus lateral thigh anterior thighs medial thighs mostly across the low back is his main complaint patient reports his legs are doing better but the back is still significant described as aching and tight stabbing at times patient rates it as a 9 on scale 10 is worst over the past week 8 on average 5 its least is an 8 today. Patient reports no new motor or sensory deficits no bowel or bladder incontinence still significant pain with walking standing changing positions beginning to awaken him from sleep at night as it initially was doing much better with distance walking household activities work activities traveling with greater ease as well. Physical Exam: VS: Blood pressure is 132/79 pulse 75 respirations 18 temperature 97.9 F height is 6 foot weight is 227 pounds PE: PHYSICAL EXAMINATION: GENERAL: The patient is awake, alert, oriented, appropriate, very pleasant demeanor HEENT: Shows normocephalic, atraumatic. Extraocular movements are intact and symmetrical. Oral cavity: Mucous membranes moist and pink NECK: Shows anterior throat supple without palpable lymphadenopathy noted. Swallow reflex symmetrical. CHEST: Shows normal on inspection. Breath sounds are clear bilaterally. HEART: Shows S1, S2 clear. No murmurs auscultated. ABDOMEN: Soft, nontender, nondistended, obese. No palpable organomegaly is noted. No rebound or guarding demonstrated. BACK: Shows spine grossly in the midline. Normal-appearing cervical lordotic curvature. There is slightly increased thoracic kyphosis, some minor flattening of the lumbar lordotic curvature with well-healed surgical scar noted in the midline. Lumbar paraspinous muscles show symmetrical on inspection, on palpation shows some moderate tenderness diffusely throughout the upper, middle and lower distribution of the paraspinous muscles bilaterally, but without specific trigger points, without radiation of pain. The patient has good rotational motion of the lumbar spine, both laterally as well as extension and flexion without significant difficulty. No tenderness over the spinous processes, sacrum or sacroiliac regions. EXTREMITIES: Lower extremities show deep tendon reflexes 1+ in the patellar and tendo calcaneus tendons. Motor exam is 3 on a scale of 5 with right dorsiflexion, extension, with significant foot drop bilaterally, quadriceps and hamstring flexion is 4 on a scale 5, bilaterally. Peripheral pulses are 1+ posterior tibial. No peripheral edema is noted bilaterally. Lower extremities are warm and dry to touch, equal in color and appearance. he patient is able to [stand, stand on his own but with significant use of the arm chair arms to stand and is using a cane in his right hand with significant antalgic gait. SKIN: Shows warm and dry, good turgor. No edema. No sores, rashes or bruising throughout. Procedure: Procedure: Options were discussed with the patient. Patient chart was reviewed his his current medication regimen updated current review of systems updated today as well. We will proceed with a second in the series lumbar epidural steroid injection today with fluoroscopic guidance. Risks were discussed including but not limited to: Bleeding, infection, possibility of epidural hematoma and subsequent neurological compromise, dural puncture, headaches, spinal cord a nd/or nerve damage, side effects of steroid medication, and poor results regarding pain control. Patient understands wished to proceed. Patient will return to the clinic in approximate 2 weeks for follow-up, was counseled as to return appointment activity level and side effects to be aware of. Medication Injected: Med Injected: Procedure is lumbar epidural steroid injection under local anesthetic using sterile prep and drape at the L4-5 level using C-arm fluoroscopic guidance in both AP and lateral views medications injected is 120 mg Depo-Medrol + 10mL preservative-free normal saline and 2 mL contrast- condition at discharge is stable patient tolerated procedure well had no complications. Condition at Discharge: Condition at Discharge: Condition at discharge is stable patient tolerated procedure well had no complications. DINO ESCOBAR MD Jan 28, 2020 10:45
== END ==
LOC: PNCL 09:56
PROVIDERS: ATTEND Anesthesiology
DX: M51.16 Intervertebral disc disorders with radiculopathy, lumbar region (principal); M48.061 Spinal stenosis, lumbar region without neurogenic claudication; I10 Essential (primary) hypertension; E11.9 Type 2 diabetes mellitus without complications; Z88.0 Allergy status to penicillin; Z88.8 Allergy status to other drugs, medicaments and biological substances; Z87.891 Personal history of nicotine dependence; Z79.899 Other long term (current) drug therapy; Z79.84 Long term (current) use of oral hypoglycemic drugs
CPT/HCPCS: 62323; J1030; J1040; Q9965

== ENCOUNTER → 2020-04-03 | Outpatient (CLI) | payer MEDICARE ==
[~2020-04-03] MED LIST changes: -IOHEXOL 180 MG/ML 10 ML VIAL. ONE; +PANT40TA77 PO; -methylPREDNISolone ACETATE 40 MG/ML VIAL. ONE; -methylPREDNISolone ACETATE 80 MG/ML VIAL. ONE
--- NOTE | 2020-04-03 14:44 | PDOC ---
Progress Note - Pain Clinic Date of Service: DOS: DATE: 04/03/20 TIME: 14:40 Diagnosis: Dx: Lumbar radiculopathy with lumbar degenerative disc disease lumbar spinal stenosis and post lumbar laminectomy syndrome History or Present Illness: HPI: 64-year-old male returns follow-up status post lumbar epidural steroid injections x2. Most recently January 28, 2020. Patient did very well with about 80% improvement initially now down about 50% improvement in the low back and the lower extremities bilaterally with some radiation down to the posterior gluteus posterior lateral thighs anterior thighs mostly in the back itself. She reports no new motor or sensory deficits reports that his pain level has been fairly well controlled but is returning now for about the past 2 to 3 weeks. Patient has recently had cardiac stents placed and has been placed on Plavix about 1 month ago. Patient rates his pain is a 9 on scale 10 is worse over the past week 6 on average 3 at its least and is a 5 today. Patient scribes as aching and sharp and stabbing in the low back itself occasional radiation into the lower extremities. Patient reports better with sitting or laying down does not awaken from sleep at night no new motor or sensory deficits no bowel or bladder incontinence or other complaints. Physical Exam: VS: Blood pressure is 112/60 pulse 81, respirations 18 temperature is 97.6 F height is 6 foot weight is 237 pounds PE: PHYSICAL EXAMINATION: GENERAL: The patient is awake, alert, oriented, appropriate, very pleasant demeanor HEENT: Shows normocephalic, atraumatic. Extraocular movements are intact and symmetrical. Oral cavity: Mucous membranes moist and pink. NECK: Shows anterior throat supple without palpable lymphadenopathy noted. Swallow reflex symmetrical. CHEST: Shows normal on inspection. Breath sounds are clear bilaterally, no rales rhonchi wheezes auscultated. HEART: Shows S1, S2 clear. No murmurs auscultated. ABDOMEN: Soft, nontender, nondistended, obese. No palpable organomegaly is noted. No rebound or guarding demonstrated. BACK: Shows spine grossly in the midline. Normal-appearing cervical lordotic curvature. There is slightly increased thoracic kyphosis, some minor flattening of the lumbar lordotic curvature. Well-healed surgical scar is again noted. Lumbar paraspinous muscles show symmetrical on inspection, on palpation shows some moderate tenderness diffusely throughout the upper, middle and lower distribution of the paraspinous muscles without specific trigger points, without radiation of pain. The patient has good rotational motion of the lumbar spine, both laterally as well as extension and flexion without significant difficulty. No tenderness over the spinous processes, sacrum or sacroiliac regions. EXTREMITIES: Lower extremities show deep tendon reflexes 1+ in the patellar and tendo calcaneus tendons. Motor exam is 4 on a scale of 5 with right dorsiflexion, extension, quadriceps and hamstring flexion and 4/5 on the left. Patient has foot drop bilaterally. Peripheral pulses are 1+ posterior tibial. No peripheral edema is noted bilaterally. Lower extremities are warm and dry to touch, equal in color and appearance. SKIN: Shows warm and dry, good turgor. No edema. No sores, rashes or bruising throughout. Procedure: Procedure: Options were discussed with the patient. Patient chart was reviewed his his current medication regimen updated current review of systems updated today as well. We will check with patient's shoe stitcher for clearance to hold the Plavix for 7 days prior to lumbar epidural steroid injection. Patient was instructed to stay on the Plavix until we can check with his shoe stitcher and cleared this if deemed safe and appropriate will have him hold it. In the meantime we will try Medrol Dosepak patient was given instruction as well as side effects beware with the medication. Medication Injected: Med Injected: None Condition at Discharge: Condition at Discharge: Condition at discharge is stable. DINO ESCOBAR MD Apr 03, 2020 14:44
== END | disposition home or self-care (01) ==
LOC: PNCL 13:59
PROVIDERS: ATTEND Anesthesiology
DX: M51.16 Intervertebral disc disorders with radiculopathy, lumbar region (principal); M48.061 Spinal stenosis, lumbar region without neurogenic claudication; M96.1 Postlaminectomy syndrome, not elsewhere classified; I25.2 Old myocardial infarction; I10 Essential (primary) hypertension; E11.42 Type 2 diabetes mellitus with diabetic polyneuropathy; K21.9 Gastro-esophageal reflux disease without esophagitis; J45.909 Unspecified asthma, uncomplicated; M48.02 Spinal stenosis, cervical region; Z88.0 Allergy status to penicillin; Z88.8 Allergy status to other drugs, medicaments and biological substances; Z79.899 Other long term (current) drug therapy; Z79.82 Long term (current) use of aspirin; Z79.4 Long term (current) use of insulin; Z98.1 Arthrodesis status; Z80.8 Family history of malignant neoplasm of other organs or systems; Z95.1 Presence of aortocoronary bypass graft; Z87.891 Personal history of nicotine dependence
CPT/HCPCS: G0463

== ENCOUNTER → 2021-04-18 | Outpatient (CLI) | payer MEDICARE ==
[~2021-04-18] MED LIST changes: +CARV25TA2 PO; +CYCL10TA19 PO; -CYCL10TA2 PO; -DULO60CA6 PO; +DULO60CA7 PO; +ICOS1CAP PO; +IOHEXOL 180 MG/ML 10 ML VIAL. ONE; -OMEP40CA45 PO; +OMEP40CA7 PO; +TAMS0.4C97 PO; +methylPREDNISolone ACETATE 80 MG/ML VIAL. ONE
--- NOTE | 2021-04-18 12:26 | PDOC ---
Progress Note - Pain Clinic Date of Service: DOS: DATE: 04/18/21 TIME: 12:21 Diagnosis: Dx: Lumbar radiculopathy with lumbar degenerative disease lumbar spinal stenosis and lumbar postlaminectomy syndrome History or Present Illness: HPI: 65-year-old male status post lumbar epidural steroid injection on January 2020 did very well with about a 75% improvement patient reports that his pain is been getting worse now over the past several months he is now off of his blood thinners and still has significant pain in the low back bilateral lower extremities patient reports prior to that though year ago was doing much better with distance walking doing household activities travel with greater ease and comfort sleeping better patient reports still better at night does not generally awaken her from sleep any significant pain in the knees as well as his hands are also significant complaints of his today. Patient reports no bowel or bladder incontinence still has a significant gait disturbance is using a cane in his right hand with walking. Patient rates his pain a 9 on scale 10 is worse over the past week 6 on average 4 to [place] is a 6 today. Patient report is aching can be radiating constant across the low back into the lower extremities posterior gluteus posterior lateral thighs lateral anterior thighs and across the back left essentially equal to the right at this time. As patient has significant arthritic complaints not only in the back and lower extremities but also in the knees and hands, as we discussed in further detail, and will start patient on new medication of meloxicam 1 tablet 15 mg daily patient was given instruction as well as side effects to be aware of with the medication. Physical Exam: VS: Blood pressure is 151/80 pulse 77 respirations are 18 temperature is 98.0 F height 6 foot weight is 235 pounds PE: PHYSICAL EXAMINATION: GENERAL: The patient is awake, alert, oriented, appropriate, very pleasant in demeanor HEENT: Shows normocephalic, atraumatic. Extraocular movements are intact and symmetrical. Oral cavity: Mucous membranes moist and pink. NECK: Shows anterior throat supple without palpable lymphadenopathy noted. Swallow reflex symmetrical. CHEST: Shows normal on inspection. Breath sounds are clear bilaterally, distant and coarse but no rales or rhonchi auscultated. HEART: Shows S1, S2 clear. No murmurs auscultated. ABDOMEN: Soft, nontender, nondistended. No palpable organomegaly is noted. BACK: Shows spine grossly in the midline. Normal-appearing cervical lordotic curvature. There is moderately increased thoracic kyphosis, some flattening of the lumbar lordotic curvature, with well-healed midline surgical scarring. Lumbar paraspinous muscles show symmetrical on inspection, on palpation shows some moderate tenderness diffusely throughout the upper, middle and lower distribution of the paraspinous muscles without specific trigger points, without radiation of pain. The patient has good rotational motion of the lumbar spine, both laterally as well as extension and flexion without significant difficulty. No tenderness over the spinous processes, sacrum or sacroiliac regions. EXTREMITIES: Lower extremities show deep tendon reflexes 1+ in the patellar and tendo calcaneus tendons. Motor exam is 4 on a scale of 5 with right dorsiflexion, extension, quadriceps and hamstring flexion and 4/5 on the left. Peripheral pulses are 1+ posterior tibial. No peripheral edema is noted bilaterally. Lower extremities are warm and dry to touch, equal in color and appearance. SKIN: Shows warm and dry, good turgor. No edema. No sores, rashes or bruising throughout. Procedure: Procedure: Options were discussed with the patient. Patient's chart was reviewed his current medication regimen updated current review of systems updated today as well. We will proceed with a lumbar epidural steroid injection today with fl uoroscopic guidance. Risks were discussed including but not limited to: Bleeding, infection, possibility of epidural hematoma and subsequent neurological compromise, dural puncture, headaches, spinal cord and/or nerve damage, side effects of steroid medication, and poor results regarding pain control. Patient understands and wished to proceed. Patient will return to clinic in approximate 2 weeks for follow-up, was counseled as to return appointment, activity level, and side effects to be aware of. Medication Injected: Med Injected: Procedure is lumbar epidural steroid injection under local anesthetic using sterile prep and drape at the L4-5 level using C-arm fluoroscopic guidance in both AP and lateral views medications injected is 120 mg Depo-Medrol +10mL preservative-free normal saline and 2 mL contrast- condition at discharge is stable patient tolerated procedure well had no complications. Condition at Discharge: Condition at Discharge: Condition at discharge is stable, patient tolerated the procedure well and had no complications. DINO ESCOBAR MD Apr 18, 2021 12:26
--- NOTE | 2021-04-18 12:26 | PDOC4 ---
Procedure Note: ICD 10 Code: ICD 10 Code: M54.16 M51.36 M48.06 M96.1 Procedure Note: Patient was consented for lumbar epidural steroid injection with fluoroscopic guidance. Risks were discussed including but not limited to: Bleeding, infection, possibility of epidural hematoma and subsequent neurological compromise, dural puncture, headaches, spinal cord and/or nerve damage, side effects of steroid medication, and poor results regarding pain control. Patient understands and wished to proceed. Procedure is lumbar epidural steroid injection under local anesthetic using sterile prep and drape at the L4-5 level using C-arm fluoroscopic guidance in both AP and lateral views medications injected is 120 mg Depo-Medrol +10mL preservative-free normal saline and 2 mL contrast- condition at discharge is stable patient tolerated procedure well had no complications. DINO ESCOBAR MD Apr 18, 2021 12:26
== END | disposition home or self-care (01) ==
LOC: PNCL 11:23
PROVIDERS: ATTEND Anesthesiology
DX: M51.16 Intervertebral disc disorders with radiculopathy, lumbar region (principal); M48.061 Spinal stenosis, lumbar region without neurogenic claudication; M96.1 Postlaminectomy syndrome, not elsewhere classified; I25.10 Atherosclerotic heart disease of native coronary artery without angina pectoris; I10 Essential (primary) hypertension; E78.00 Pure hypercholesterolemia, unspecified; E66.9 Obesity, unspecified; K21.9 Gastro-esophageal reflux disease without esophagitis; E11.9 Type 2 diabetes mellitus without complications; J44.9 Chronic obstructive pulmonary disease, unspecified; F32.9 Major depressive disorder, single episode, unspecified; Z87.891 Personal history of nicotine dependence; Z79.82 Long term (current) use of aspirin; Z79.84 Long term (current) use of oral hypoglycemic drugs; Z79.899 Other long term (current) drug therapy; Z98.890 Other specified postprocedural states; Z88.0 Allergy status to penicillin; Z88.1 Allergy status to other antibiotic agents
CPT/HCPCS: 62323; J1040; Q9965

== ENCOUNTER → 2021-07-11 | Outpatient (CLI) | payer MEDICARE ==
[~2021-07-11] MED LIST changes: +DEXAMETHASONE PRES.FREE 10 MG/ML VIAL. ONE; +MELO7.5T29 PO; -methylPREDNISolone ACETATE 80 MG/ML VIAL. ONE
--- NOTE | 2021-07-11 13:35 | PDOC ---
Progress Note - Pain Clinic Date of Service: DOS: DATE: 07/11/21 TIME: 13:31 Diagnosis: Dx: Lumbar radiculopathy with lumbar degenerative disease lumbar spinal stenosis and lumbar postlaminectomy syndrome History or Present Illness: HPI: 65-year-old male returns for follow-up status post lumbar epidural steroid injection last seen April 18, 2021 patient did very well after the injection with about 50% improvement for 2 months patient reports the pain is increasing in the low back now and now has more pain on the right leg in the posterior gluteus lateral thigh and anterior thigh where initially it was in both legs mostly in the posterior aspect patient reports the right leg is becoming much more noticeable with walking standing changing positions getting up from a seated position with radiating pain in the anterior thigh as well as into the medial thigh and knee on the right side patient reports stabbing and burning aching constant in the back is sharp and dull alternating also shooting in the right leg patient reports a 9 on scale 10 is worse over the past week 5 on average 3 at its least and is a 5 today. Patient reports is better with sitting or laying down generally is not awakening from sleep at night most nights but occasionally will. Patient reports better with sitting but sitting for prolonged periods greater than 30 minutes does exacerbate the pain in the right leg. Patient reports no weakness in the leg no bowel or bladder incontinence but significant fatigability of the right lower extremity with standing still or walking about 10 minutes. Patient reports that the meloxicam we prescribed with him on his last visit is helping significantly with the pain in his hands. Physical Exam: VS: Blood pressure is 126/81 pulse 72 respirations 18 temperature 98.2 F height 6 foot weight is 235 pounds. PE: PHYSICAL EXAMINATION: GENERAL: The patient is awake, alert, oriented, appropriate, very pleasant in demeanor HEENT: Shows normocephalic, atraumatic. Extraocular movements are intact and symmetrical. Oral cavity: Mucous membranes moist and pink. NECK: Shows anterior throat supple without palpable lymphadenopathy noted. Swallow reflex symmetrical. CHEST: Shows normal on inspection. Breath sounds are clear bilaterally. HEART: Shows S1, S2 clear. No murmurs auscultated. ABDOMEN: Soft, nontender, nondistended. No palpable organomegaly is noted. BACK: Shows spine grossly in the midline. Normal-appearing cervical lordotic curvature. There is moderately increased thoracic kyphosis, some flattening of the lumbar lordotic curvature, with well-healed surgical scarring noted. Lumbar paraspinous muscles show symmetrical on inspection, on palpation shows some moderate tenderness diffusely throughout the upper, middle and lower distribution of the paraspinous muscles without specific trigger points, without radiation of pain. The patient has good rotational motion of the lumbar spine, both laterally as well as extension and flexion without significant difficulty. No tenderness over the spinous processes, sacrum or sacroiliac regions. EXTREMITIES: Lower extremities show deep tendon reflexes 1+ in the patellar and tendo calcaneus tendons. Motor exam is 4 on a scale of 5 with right dorsiflexion, extension, quadriceps and hamstring flexion and 4/5 on the left. Peripheral pulses are 1 posterior tibial. No peripheral edema is noted bilaterally. Lower extremities are warm and dry to touch, equal in color and appearance. SKIN: Shows warm and dry, good turgor. No edema. No sores, rashes or bruising throughout. Procedure: Procedure: Options discussed with the patient. Patient's chart was reviewed as her current medication regimen updated current review of systems updated today as well. We will proceed with a lumbar epidural steroid injection today with fluoroscopic guidance. Risks were discussed including but not limited to: Bleeding, infection, possibility of epidural hematoma and subsequent neurological compromise, dural puncture, headaches, spinal cord and/or nerve damage, side effects of steroid medication, and poor results regarding pain control. Patient understands and wished to proceed. Patient will return to clinic in approximately 2 weeks for follow-up, was counseled as to return appointment, activity level, and side effects to be aware of. Medication Injected: Med Injected: Procedure is lumbar epidural steroid injection under local anesthetic using sterile prep and drape at the L4-5 level using C-arm fluoroscopic guidance in both AP and lateral views medications injected is 20 mg dexamethasone +10mL preservative-free normal saline and 2 mL contrast- condition at discharge is stable patient tolerated procedure well had no complications. Condition at Discharge: Condition at Discharge: Condition at discharge is stable, patient tolerated the procedure well and had no complications. DINO ESCOBAR MD Jul 11, 2021 13:35
--- NOTE | 2021-07-11 13:36 | PDOC4 ---
Procedure Note: ICD 10 Code: ICD 10 Code: M54.16 M51.36 M4 8.06 M 96.1 Procedure Note: Patient was consented for lumbar epidural steroid injection with fluoroscopic guidance. Risks were discussed including but not limited to: Bleeding, infection, possibility of epidural hematoma and subsequent neurological compromise, dural puncture, headaches, spinal cord and/or nerve damage, side effects of steroid medication, and poor results regarding pain control. Patient understands and wished to proceed. Procedure is lumbar epidural steroid injection under local anesthetic using sterile prep and drape at the L4-5 level using C-arm fluoroscopic guidance in both AP and lateral views medications injected is 20 mg dexamethasone +10mL preservative-free normal saline and 2 mL contrast- condition at discharge is stable patient tolerated procedure well had no complications. DINO ESCOBAR MD Jul 11, 2021 13:36
== END | disposition home or self-care (01) ==
LOC: PNCL 11:37
PROVIDERS: ATTEND Anesthesiology
DX: M51.16 Intervertebral disc disorders with radiculopathy, lumbar region (principal); M48.061 Spinal stenosis, lumbar region without neurogenic claudication; M96.1 Postlaminectomy syndrome, not elsewhere classified; I25.10 Atherosclerotic heart disease of native coronary artery without angina pectoris; I10 Essential (primary) hypertension; E78.00 Pure hypercholesterolemia, unspecified; J44.9 Chronic obstructive pulmonary disease, unspecified; K21.9 Gastro-esophageal reflux disease without esophagitis; M19.90 Unspecified osteoarthritis, unspecified site; E11.9 Type 2 diabetes mellitus without complications; F32.9 Major depressive disorder, single episode, unspecified; Z87.891 Personal history of nicotine dependence; Z79.82 Long term (current) use of aspirin; Z79.84 Long term (current) use of oral hypoglycemic drugs; Z79.899 Other long term (current) drug therapy; Z98.890 Other specified postprocedural states; Z88.0 Allergy status to penicillin; Z88.1 Allergy status to other antibiotic agents
CPT/HCPCS: 62323; J1100; Q9965